=== PATIENT | female | born 1990 | race Caucasian/White ===

== ENCOUNTER 2017-07-05 21:01 | Emergency (ER) | payer MEDICAID, OTHER ==
[~2017-07-05] VITALS: Ht 162.6 cm; Wt 108.9 kg
[2017-07-05 22:52] VITALS: BP 144/74
[2017-07-05] MEDS ORDERED: KETOROLAC TROMETH 60MG/2ML VIAL IM ONE (23:15)
[2017-07-05] MEDS ORDERED: HYDROcodone-ACET 5/325MG TAB PO ONE (23:15)
== END 2017-07-06 00:19 | disposition home or self-care (01) ==
LOC: ER 21:01
DX: S02.2XXA Fracture of nasal bones, initial encounter for closed fracture (principal); W22.8XXA Striking against or struck by other objects, initial encounter; Y93.89 Activity, other specified; Y99.8 Other external cause status; Y92.89 Other specified places as the place of occurrence of the external cause
CPT/HCPCS: 70486; 96372; 99284; J1885